=== PATIENT | male | born 1955 | race Caucasian/White ===

== ENCOUNTER 2018-08-09 13:12 | Inpatient (IN) | payer OTHER ==
[~2018-08-09] VITALS: Ht 167.6 cm; Wt 105.7 kg
[2018-08-09 13:46] VITALS: Ht 167.6 cm; Wt 105.7 kg
[2018-08-09 14:33] LABS: CALCIUM 8.9 mg/dL (8.5-10.1); CARBON DIOXIDE 28.4 mmol/L (21-32); CREATININE SERUM 2.8 mg/dL (0.7-1.3); POTASSIUM SERUM 4.4 mmol/L (3.5-5.1)
[2018-08-09 14:38] LABS: BILIRUBIN TOTAL 0.99 mg/dL (0.20-1.00)
[2018-08-09 14:39] LABS: ALBUMIN 2.9 g/dL (3.4-5.0); TOTAL PROTEIN, SERUM 8.3 g/dL (6.4-8.2)
[2018-08-09 14:43] LABS: BASOPHIL % 0.1 % (0-2); PLATELET COUNT 247 x10^3mcL (130-400); RED CELL DISTRIBUTION WIDTH 13.3 % (11.5-14.5)
[2018-08-09] MEDS ORDERED: TAMSULOSIN HYD0.4 M1 PO (15:16)
[2018-08-09] MEDS ORDERED: ACT30 PO (15:16)
[2018-08-09] MEDS ORDERED: ATORVASTATIN CA40 M1 PO (15:16)
[2018-08-09] MEDS ORDERED: NOR5 PO (15:17)
[2018-08-09] MEDS ORDERED: LOSARTAN POTASS1 TA6 PO (15:17)
[2018-08-09] MEDS ORDERED: [UNRECOGNIZED DRUG - OTHER] (15:18)
[2018-08-09 15:27] LABS: microscopic required? NO
[2018-08-09 15:44] LABS: urine erythrocyte NEGATIVE (NEGATIVE)
[2018-08-09 16:35] VITALS: BP 142/64
[2018-08-09 18:15] VITALS: BP 125/66
[2018-08-09 20:55] VITALS: BP 150/73
[2018-08-10 05:55] VITALS: BP 103/61
[2018-08-10 07:03] LABS: CALCIUM 8.3 mg/dL (8.5-10.1); CARBON DIOXIDE 29.8 mmol/L (21-32); CREATININE SERUM 2.3 mg/dL (0.7-1.3); POTASSIUM SERUM 4.1 mmol/L (3.5-5.1)
[2018-08-10 07:13] LABS: BASOPHIL % 0.2 % (0-2); PLATELET COUNT 232 x10^3mcL (130-400); RED CELL DISTRIBUTION WIDTH 13.2 % (11.5-14.5)
[2018-08-10 08:55] VITALS: BP 127/66
[2018-08-10 13:56] LABS: CREATININE UR 131.5 mg/dL
[2018-08-10 17:00] VITALS: BP 114/63
[2018-08-10 20:46] VITALS: BP 158/65
[2018-08-11 06:09] VITALS: BP 135/64
[2018-08-11 06:16] LABS: PLATELET COUNT 270 x10^3mcL (130-400); RED CELL DISTRIBUTION WIDTH 13.8 % (11.5-14.5)
[2018-08-11 06:26] LABS: CALCIUM 8.6 mg/dL (8.5-10.1); CARBON DIOXIDE 25.9 mmol/L (21-32); CREATININE SERUM 1.8 mg/dL (0.7-1.3); MAGNESIUM 1.6 mg/dL (1.8-2.4); POTASSIUM SERUM 4.4 mmol/L (3.5-5.1)
[2018-08-11 06:42] LABS: BASOPHIL % 0 % (0-2)
[2018-08-11 08:35] VITALS: BP 123/72
[2018-08-11 12:25] VITALS: BP 122/63
[2018-08-11 16:42] VITALS: BP 112/69
[2018-08-11 22:09] VITALS: BP 100/58
[2018-08-12 05:41] VITALS: BP 145/84
[2018-08-12 10:01] VITALS: BP 131/71
[2018-08-12 13:13] VITALS: BP 162/86
[2018-08-12 16:54] VITALS: BP 162/86
== END 2018-08-12 17:20 | disposition home or self-care (01) | DRG 720 ==
LOC: ED 13:12 → MU 14:48 → DU 08-11 02:14
PROVIDERS: Emergency Medicine; Internal Medicine Nephrology; Internal Medicine Pulmonary Disease; ADMIT Internal Medicine Pulmonary Disease
DX: A41.9 Sepsis, unspecified organism (principal); N17.9 Acute kidney failure, unspecified; J18.9 Pneumonia, unspecified organism; E11.21 Type 2 diabetes mellitus with diabetic nephropathy; I12.9 Hypertensive chronic kidney disease with stage 1 through stage 4 chronic kidney disease, or unspecified chronic kidney disease; E11.22 Type 2 diabetes mellitus with diabetic chronic kidney disease; N18.9 Chronic kidney disease, unspecified; N40.0 Benign prostatic hyperplasia without lower urinary tract symptoms; E78.5 Hyperlipidemia, unspecified; E66.9 Obesity, unspecified; D63.8 Anemia in other chronic diseases classified elsewhere; R09.02 Hypoxemia; Z79.84 Long term (current) use of oral hypoglycemic drugs; Z68.37 Body mass index [BMI] 37.0-37.9, adult; Z99.81 Dependence on supplemental oxygen; Z79.899 Other long term (current) drug therapy
CPT/HCPCS: 82962; J0696; J1956; J2543; J2920; J7030; J7613; J7620; J7644; Q0092